=== PATIENT | female | born 1930 | race Caucasian/White ===

== ENCOUNTER 2018-05-05 18:29 | Inpatient (IN) | payer MEDICAID, OTHER ==
[2018-05-05 19:45] LABS: ADD MAN DIFF? NO
[2018-05-05 19:46] LABS: WHITE BLOOD COUNT 4.4 10^3/ul (4.8-10.8)
[2018-05-05 19:46] LABS: BASOPHILS % 0.7 % (0.0-2.0); EOSINOPHILS # 0.2 10^3/ul (0.0-0.5); EOSINOPHILS % 4.3 % (0.0-7.0); HEMOGLOBIN 11.6 g/dl (12.0-16.0); LYMPHOCYTES # 1.8 10^3/ul (0.8-2.9); LYMPHOCYTES % 40.3 % (15.0-51.0); MEAN CORPUSCULAR HEMOGLOBIN 29.3 pg (29.0-33.0); MEAN CORPUSCULAR HGB CONC 32.2 g/dl (32.0-37.0); MEAN CORPUSCULAR VOLUME 90.9 fl (82.0-101.0); MEAN PLATELET VOLUME 9.6 fl (7.4-10.4); MONOCYTE # 0.6 10^3/ul (0.3-0.9); MONOCYTES % 12.6 % (0.0-11.0); NEUTROPHIL # 1.8 10^3/ul (1.6-7.5); NEUTROPHILS % 41.6 % (39.0-77.0); PLATELET COUNT 266 10^3/UL (140-415); RED BLOOD COUNT 3.96 10^6/ul (4.20-5.40); RED CELL DISTRIBUTION WIDTH 13.1 % (11.5-14.5)
[2018-05-05 20:03] LABS: PROTIME 12.3 Sec (11.9-14.9)
[2018-05-05 20:04] LABS: PARTIAL THROMBOPLASTIN TIME 28.5 Sec (23.0-35.0)
[2018-05-05 20:06] LABS: ALANINE AMINOTRANSFERASE 21 IU/L (13-69); ALBUMIN 4.1 g/dl (3.3-4.9); ALKALINE PHOSPHATASE 109 IU/L (42-121); ANION GAP 11 (5-13); ASPARTATE AMINO TRANSFERASE 34 IU/L (15-46); BILIRUBIN,INDIRECT 0.1 mg/dl (0-1.1); BILIRUBIN,TOTAL 0.1 mg/dl (0.2-1.3); BLOOD UREA NITROGEN 22 mg/dl (7-20); CALCIUM 9.3 mg/dl (8.4-10.2); CARBON DIOXIDE 23 mmol/L (21-31); CHLORIDE 103 mmol/L (97-110); CREATININE 0.65 mg/dl (0.44-1.00); GLUCOSE 126 mg/dl (70-220); SODIUM 137 mmol/L (135-144); TOTAL PROTEIN 7.5 g/dl (6.1-8.1)
[2018-05-05 20:18] LABS: TROPONIN-I < 0.012 ng/ml (0.000-0.120)
[2018-05-05] MEDS ORDERED: ONDANSETRON 4 MG INJ IV (22:30)
[2018-05-05] MEDS ORDERED: NACL 0.9% 3 ML SYG IV (22:30)
[2018-05-05] MEDS ORDERED: ACETAMINOPHEN 650 MG SUPP PR (22:30)
[2018-05-06] MEDS: DEXTROSE 5%-0.45% NACL 1,000 ML IV (02:15)
[2018-05-06 05:25] LABS: ADD MAN DIFF? NO
[2018-05-06 05:31] LABS: WHITE BLOOD COUNT 5.8 10^3/ul (4.8-10.8)
[2018-05-06 05:31] LABS: BASOPHILS % 0.5 % (0.0-2.0); EOSINOPHILS # 0.1 10^3/ul (0.0-0.5); EOSINOPHILS % 2.4 % (0.0-7.0); HEMATOCRIT 33.7 % (37.0-47.0); HEMOGLOBIN 11.4 g/dl (12.0-16.0); LYMPHOCYTES # 1.8 10^3/ul (0.8-2.9); LYMPHOCYTES % 30.5 % (15.0-51.0); MEAN CORPUSCULAR HEMOGLOBIN 29.7 pg (29.0-33.0); MEAN CORPUSCULAR HGB CONC 33.8 g/dl (32.0-37.0); MEAN CORPUSCULAR VOLUME 87.8 fl (82.0-101.0); MEAN PLATELET VOLUME 9.6 fl (7.4-10.4); MONOCYTE # 0.6 10^3/ul (0.3-0.9); MONOCYTES % 10.3 % (0.0-11.0); NEUTROPHIL # 3.3 10^3/ul (1.6-7.5); NEUTROPHILS % 56.1 % (39.0-77.0); PLATELET COUNT 264 10^3/UL (140-415); RED BLOOD COUNT 3.84 10^6/ul (4.20-5.40); RED CELL DISTRIBUTION WIDTH 13.2 % (11.5-14.5)
[2018-05-06 05:40] LABS: HEMOGLOBIN A1C 5.4 % (0-5.9)
[2018-05-06 06:00] LABS: ALANINE AMINOTRANSFERASE 27 IU/L (13-69); ALBUMIN 3.8 g/dl (3.3-4.9); ALBUMIN/GLOBULIN RATIO 1.18; ALKALINE PHOSPHATASE 89 IU/L (42-121); ANION GAP 13 (5-13); ASPARTATE AMINO TRANSFERASE 35 IU/L (15-46); BILIRUBIN,INDIRECT 0.3 mg/dl (0-1.1); BILIRUBIN,TOTAL 0.3 mg/dl (0.2-1.3); BLOOD UREA NITROGEN 16 mg/dl (7-20); CALCIUM 9.2 mg/dl (8.4-10.2); CARBON DIOXIDE 26 mmol/L (21-31); CHLORIDE 105 mmol/L (97-110); CHOL/HDL RATIO 3.9 RATIO; CHOLESTEROL 142 mg/dl (100-200); CREATININE 0.53 mg/dl (0.44-1.00); GLUCOSE 102 mg/dl (70-220); HDL CHOLESTEROL 36 mg/dl (33-92); LDL CHOLESTEROL,CALCULATED 85 mg/dl; POTASSIUM 4.2 mmol/L (3.5-5.1); SODIUM 144 mmol/L (135-144); TRIGLYCERIDES 103 mg/dl (0-149)
[2018-05-07] MEDS ORDERED: hydrALAzine 20 MG INJ IV
== END 2018-05-07 12:05 | disposition home or self-care (01) | DRG 57 ==
LOC: ICU 22:02 → E/R 18:29 → MS1 05-06 21:21
DX: G91.9 Hydrocephalus, unspecified (principal); R55 Syncope and collapse; D64.9 Anemia, unspecified; I10 Essential (primary) hypertension; R42 Dizziness and giddiness; D72.819 Decreased white blood cell count, unspecified
CPT/HCPCS: 70450; 70553; 80053; 80061; 83036; 83735; 84484; 85025; 85610; 85730; 87081; 93005; 93306; 99291-25